=== PATIENT | male | born 1995 | race Caucasian/White ===

== ENCOUNTER 2023-04-26 13:12 | Emergency (ER) | payer OTHER ==
[~2023-04-26] VITALS: Ht 180.3 cm; Wt 77.1 kg
[2023-04-26 13:20] VITALS: BP 101/51; TEMP 98
[2023-04-26 13:47] VITALS: O2SAT 100
== END 2023-04-26 13:48 | disposition home or self-care (01) ==
LOC: ER 13:23
DX: Z77.22 Contact with and (suspected) exposure to environmental tobacco smoke (acute) (chronic) (principal); J45.909 Unspecified asthma, uncomplicated

== ENCOUNTER 2024-04-21 17:53 | Emergency (ER) | payer OTHER ==
[~2024-04-21] VITALS: Ht 177.8 cm; Wt 77.1 kg
[2024-04-21] MEDS ORDERED: TDAP [DIPH/PERTUSSIS/TET] 0.5 ML VIAL IM ONE (18:25)
[2024-04-21] MEDS: TDAP [DIPH/PERTUSSIS/TET] 0.5 ML VIAL IM ONE (18:31)
[2024-04-21 18:44] VITALS: BP 120/84; TEMP 98.7; O2SAT 98
== END 2024-04-21 18:45 | disposition home or self-care (01) ==
LOC: ER 17:54
DX: S01.01XA Laceration without foreign body of scalp, initial encounter (principal); J45.909 Unspecified asthma, uncomplicated; W22.8XXA Striking against or struck by other objects, initial encounter; Y93.89 Activity, other specified; Y92.89 Other specified places as the place of occurrence of the external cause; Y99.8 Other external cause status
CPT/HCPCS: 90715

== ENCOUNTER 2024-04-28 19:16 | Emergency (ER) | payer OTHER ==
[~2024-04-28] VITALS: Ht 180.3 cm; Wt 77.1 kg
[2024-04-28 19:35] VITALS: BP 143/72; TEMP 98; O2SAT 100
== END 2024-04-28 20:06 | disposition home or self-care (01) ==
LOC: ER 19:18
DX: S01.91XD Laceration without foreign body of unspecified part of head, subsequent encounter (principal); J45.909 Unspecified asthma, uncomplicated; W22.8XXD Striking against or struck by other objects, subsequent encounter